=== PATIENT | female | born 1985 | race American Indian/Alaskan Native ===

== ENCOUNTER 2020-11-29 19:07 | Inpatient (IN) | payer MEDICAID, OTHER ==
--- NOTE | 2020-11-29 19:56 | Event Note ---
ED Screening Note Date of service: 11/29/20 Time: 19:55 ED Screening Note: Patient here with complaints of abdominal pain and vomiting History of diabetes Heart rate noted to be 143 with a temperature of 100 This initial assessment/diagnostic orders/clinical plan/treatment(s) is/are subject to change based on patients health status, clinical progression and re- assessment by fellow clinical providers in the ED. Further treatment and workup at subsequent clinical providers discretion. Patient/guardian urged not to elope from the ED as their condition may be serious if not clinically assessed and managed. Initial orders include: Labs POC glucose EKG
[2020-11-29] MEDS ORDERED: HYDROmorphone 1 MG/1 ML INJ IV ONE ×2 (20:53→22:46)
[2020-11-29] MEDS ORDERED: ONDANSETRON 4 MG/2 ML INJ IV ONE (20:53)
[2020-11-29] MEDS ORDERED: SODIUM CHLORIDE 0.9% 1000 ML 1,000 ML IV ONE ×3 (20:53→22:30)
--- NOTE | 2020-11-29 20:58 | Emergency Department Report ---
ED Abdominal Pain HPI - General Chief Complaint: Nausea/Vomiting/Diarrhea Stated Complaint: ABD PAIN,NAUSEA,VOMITING PUI?: No Time Seen by Provider: 11/29/20 20:53 Source: patient, EMS Mode of arrival: Stretcher Limitations: No Limitations - History of Present Illness Initial Comments: Patient is a 35-year-old female that presents emergency room with complaints of upper abdominal pain and bilateral flank pain. Patient states that the pain started at 4 AM this morning. Patient states she consumed a donut and then began to began to have abdominal pain and vomiting. Patient states now she has developed diarrhea. Patient denies blood in the vomitus. Patient denies blood in her vomit. Patient dates not able to hold anything down. Patient states the pain is in her upper abdomen and in her bilateral flanks. Patient states the pain is nonradiating. Patient dates the pain is a 10 out of 10. Patient states the pain is better with rest and worse with movement and palpation. Patient denies recent travel. Patient denies recent international travel. Patient denies exposure to the novel coronavirus. Patient denies sick contacts. Patient denies fever and chills. Patient denies cough. Patient denies diarrhea. Patient denies coming in contact with anybody with symptoms of the novel coronavirus. MD Complaint: abdominal pain -: Sudden Location: LUQ, RUQ, epigastric, L flank, R flank Migration to: no migration Severity: severe Severity scale (0 -10): 10 Quality: stabbing Consistency: constant Improves With: rest Worsens With: eating, vomiting, movement Associated Symptoms: nausea, vomiting, diarrhea. denies: fever, chills, con stipation, dysuria, hematemesis, hematochezia, melena, hematuria, syncope Treatments Prior to Arrival: other - Related Data LMP (females 10-50): last week Previous Rx's Medication Instructions Recorded Last Taken Type Ondansetron [Zofran Odt] 4 mg SL Q6H PRN #8 tab.rapdis 06/20/15 Unknown Rx Albuterol Sulfate [Ventolin HFA] 2 puff IH Q4H PRN #1 hfa.aer.ad 09/09/15 Unknown Rx Azithromycin [Zithromax Z-DANIE] 250 mg PO DAILY #6 tab 09/09/15 Unknown Rx Ibuprofen [Motrin] 800 mg PO Q8HR PRN #15 tablet 09/09/15 Unknown Rx Promethazine Dm (Nf) [Phenergan DM 5 ml PO Q6H PRN #120 ml 09/09/15 Unknown Rx 6.25-15 mg/5 ml] methylPREDNISolone [Medrol Dose 4 mg PO QAM #1 pack 09/09/15 Unknown Rx Danie] HYDROcodone/APAP 10-325 [[place] 1 each PO Q6HR PRN #20 tablet 01/23/16 Unknown Rx 10-325 mg TAB] Allergies Allergy/AdvReac Type Severity Reaction Status Date / Time ibuprofen [From Motrin] Allergy Swelling Verified 01/22/16 16:54 ketorolac tromethamine Allergy Swelling Verified 09/09/15 15:34 [From Toradol] metoclopramide [From Reglan] Allergy Rash Verified 11/29/20 19:55 tramadol Allergy Swelling Verified 09/09/15 15:34 vancomycin Allergy Hives Verified 11/29/20 19:54 ED Review of Systems ROS: Stated complaint: ABD PAIN,NAUSEA,VOMITING Other details as noted in HPI Constitutional: denies: chills, fever Eyes: denies: eye pain, eye discharge, vision change ENT: denies: ear pain, throat pain Respiratory: denies: cough, shortness of breath, wheezing Cardiovascular: denies: chest pain, palpitations Endocrine: no symptoms reported Gastrointestinal: as per HPI, abdominal pain, nausea, vomiting, diarrhea. denies: constipation, hematemesis, melena, hematochezia Genitourinary: denies: urgency, dysuria, discharge Musculoskeletal: denies: back pain, joint swelling, arthralgia Skin: denies: rash, lesions Neurological: denies: headache, weakness, paresthesias Psychiatric: denies: anxiety, depression Hematological/Lymphatic: denies: easy bleeding, easy bruising ED Past Medical Hx - Past Medical History Previous Medical History?: Yes Hx Diabetes: Yes Hx Asthma: Yes Additional medical history: Chronic back pain. enlarged heart - Surgical History Past Surgical History?: Yes Hx Cholecystectomy: Yes Hx Appendectomy: Yes Hx Breast Surgery: Yes (reduction) Additional Surgical History: right ankle surgery. total hysterectomy - Family History Family history: no significant - Social History Smoking Status: Never Smoker Substance Use Type: None - Medications Home Medications: Home Medications Medication Instructions Recorded Confirmed Last Taken Type Ondansetron [Zofran Odt] 4 mg SL Q6H PRN #8 tab.rapdis 06/20/15 Unknown Rx Albuterol Sulfate [Ventolin HFA] 2 puff IH Q4H PRN #1 hfa.aer.ad 09/09/15 Unknown Rx Azithromycin [Zithromax Z-DANIE] 250 mg PO DAILY #6 tab 09/09/15 Unknown Rx Ibuprofen [Motrin] 800 mg PO Q8HR PRN #15 tablet 09/09/15 Unknown Rx Promethazine Dm (Nf) [Phenergan DM 5 ml PO Q6H PRN #120 ml 09/09/15 Unknown Rx 6.25-15 mg/5 ml] methylPREDNISolone [Medrol Dose 4 mg PO QAM #1 pack 09/09/15 Unknown Rx Danie] HYDROcodone/APAP 10-325 [[place] 1 each PO Q6HR PRN #20 tablet 01/23/16 Unknown Rx 10-325 mg TAB] ED Physical Exam - General Limitations: No Limitations General appearance: alert, in no apparent distress - Head Head exam: Present: atraumatic, normocephalic - Eye Eye exam: Present: normal appearance - ENT ENT exam: Present: mucous membranes moist - Neck Neck exam: Present: normal inspection - Respiratory Respiratory exam: Present: normal lung sounds bilaterally. Absent: respiratory distress - Cardiovascular Cardiovascular Exam: Present: regular rate, normal rhythm. Absent: systolic murmur, diastolic murmur, rubs, gallop - GI/Abdominal GI/Abdominal exam: Present: soft, tenderness (Upper abdomen tenderness to palpation.), normal bowel sounds - Extremities Exam Extremities exam: Present: normal inspection - Back Exam Back exam: Present: normal inspection - Neurological Exam Neurological exam: Present: alert, oriented X3 - Psychiatric Psychiatric exam: Present: normal affect, normal mood - Skin Skin exam: Present: warm, dry, intact, normal color. Absent: rash ED Course Vital Signs 11/29/20 19:39 Temperature 100.0 F H Pulse Rate 143 H Respiratory 18 Rate Blood Pressure 109/72 O2 Sat by Pulse 98 Oximetry - Reevaluation(s) Reevaluation #1: Patient states her pain is severe. Patient will be given another milligram of Dilaudid. 11/29/20 22:37 Reevaluation #2: Patient states her pain is a little bit better. I discussed all results with patient. I discussed plan of care with patient. Patient agrees with plan of care and admission. Patient to be admitted to the hospitalist service. 11/29/20 23:34 - Consultations Consultation #1: Hospitalist consulted for admission. Hospitalist to admit patient. 11/29/20 23:36 ED Medical Decision Making - Lab Data Result diagrams: 11/29/20 20:20 11/29/20 20:54 - Radiology Data Radiology results: report reviewed, image reviewed interpreted by me: Chest x-ray: No pneumonia, no pneumothorax, no foreign body, no osseous findings, no acute findings CT abdomen pelvis w con INDICATION: Upper abd pain and bi-lateral flank pain with vomiting.. COMPARISON: None TECHNIQUE: Abdominal and pelvic CT exam performed. All CT scans at this location are performed using CT dose reduction for ALARA by means of automated exposure control. FINDINGS: CT ABDOMEN and PELVIS: Lung Bases: No significant abnormality. Liver: No significant abnormality. Biliary: Gallbladder is surgically absent. Spleen: No significant abnormality. Pancreas: No significant abnormality. Adrenals: No significant abnormality. Kidneys: No significant abnormality. Lymphatics: No lymphadenopathy. Vasculature: No significant abnormality. Bowel: No significant abnormality. Appendix is surgically absent. Pelvis: Uterus is surgically absent. Osseous Structures: No aggressive osseous lesion. Additional Findings: None IMPRESSION: 1. No acute abnormality of the abdomen or pelvis. XR chest 1V ap INDICATION / CLINICAL INFORMATION: fever COMPARISON: None available. FINDINGS: SUPPORT DEVICES: None. HEART / MEDIASTINUM: No significant abnormality. LUNGS / PLEURA: Lungs are clear. Costophrenic sulci are sharp. No pneumothorax. ADDITIONAL FINDINGS: No significant additional findings. IMPRESSION: 1. No acute findings. - Medical Decision Making Patient is a 35-year-old female that presents emergency room with complaints of nausea, vomiting, diarrhea, abdominal pain. Patient states her symptoms started at 4 AM. Patient states she is unable to hold anything down. Patient states she is having severe pain. Patient had labs done which were essentially unremarkable except for elevated WBC and lactic acidosis. Patient given fluids and antibiotics early in her ER stay. Patient had a CT scan and the CT scan of the abdomen showed no acute findings. Patient given pain medication which improved her pain. Patient given Zofran which improved her nausea vomiting. Patient has a Sirs reaction and is unclear where her source of infection is. Patient will be admitted to the hospital service for further evaluation treatment. Prior to admission, the hospitalist request Covid work-up and chest x-ray. Chest x-ray is negative for acute finding. I personally reviewed the chest x- ray. The Covid labs will be pending and the hospitalist will follow the Covid labs. Critical care time documented due to the multiple reassessments, prolonged time at the bedside, interpretation of diagnostics and labs. - Differential Diagnosis Fever, abdominal pain, nausea, vomiting, gastroenteritis, diverticulitis Critical Care Time: Yes Critical care time in (mins) excluding proc time.: 35 Critical care attestation.: If time is entered above; I have spent that time in minutes in the direct care of this critically ill patient, excluding procedure time. Critical Care Time: 35 minutes ED Disposition Clinical Impression: Lactic acid acidosis, SIRS (systemic inflammatory response syndrome), Gastroenteritis, Person under investigation for COVID-19 Abdominal pain Qualifiers: Abdominal location: upper abdomen, unspecified Qualified Code(s): R10.10 - Upper abdominal pain, unspecified Nausea & vomiting Qualifiers: Vomiting type: unspecified Vomiting Intractability: non-intractable Qualified Code(s): R11.2 - Nausea with vomiting, unspecified Fever Qualifiers: Fever type: unspecified Qualified Code(s): R50.9 - Fever, unspecified Disposition: DC-09 OP ADMIT IP TO THIS HOSP Is pt being admited?: Yes Does the pt Need Aspirin: No Condition: Critical Time of Disposition: 23:37
[2020-11-29 20:59] LABS: Mean Corpuscular HGB Conc 31 % (30-34); Mean Corpuscular Volume 87 fl (79-97); Platelet Count 233 K/mm3 (140-440); Red Blood Count 4.82 M/mm3 (3.65-5.03); Red Cell Distribution Width 16.9 % (13.2-15.2)
[2020-11-29 21:00] LABS: Hemoglobin 12.9 gm/dl (10.1-14.3)
[2020-11-29 21:30] LABS: Alanine Aminotransferase 17 units/L (7-56); Albumin 4.5 g/dL (3.9-5); BUN/Creatinine Ratio 14; Blood Urea Nitrogen 11 mg/dL (7-17); Calcium 9.2 mg/dL (8.4-10.2); Hemolysis Index 15
[2020-11-29 22:03] LABS: Bacteria,Urine 1+ /HPF (Negative); Bilirubin,Urine NEG (Negative); Blood,Urine SM (Negative); Color,Urine Yellow (Yellow); Mucus,Urine 2+ /HPF; Urobilinogen,Urine < 2.0 mg/dL (<2.0)
[2020-11-29 22:22] LABS: Total Cells Counted 100
[2020-11-29 22:23] LABS: Anisocytosis Few; Hypochromasia Rare
[2020-11-29] MEDS ORDERED: PIPERACILLIN/TAZOBACTAM 3.375 3.375 GM/50 ML BAG IV ONE (22:29)
--- NOTE | 2020-11-29 22:55 | Cat Scan Report ---
CT abdomen pelvis w con INDICATION: Upper abd pain and bi-lateral flank pain with vomiting.. COMPARISON: None TECHNIQUE: Abdominal and pelvic CT exam performed. All CT scans at this location are performed using CT dose reduction for ALARA by means of automated exposure control. FINDINGS: CT ABDOMEN and PELVIS: Lung Bases: No significant abnormality. Liver: No significant abnormality. Biliary: Gallbladder is surgically absent. Spleen: No significant abnormality. Pancreas: No significant abnormality. Adrenals: No significant abnormality. Kidneys: No significant abnormality. Lymphatics: No lymphadenopathy. Vasculature: No significant abnormality. Bowel: No significant abnormality. Appendix is surgically absent. Pelvis: Uterus is surgically absent. Osseous Structures: No aggressive osseous lesion. Additional Findings: None IMPRESSION: 1. No acute abnormality of the abdomen or pelvis. Signer Name: Matthew Orona MD Signed: 11/29/2020 10:51 PM Workstation Name: [id number]
--- NOTE | 2020-11-30 00:04 | XRay Report ---
XR chest 1V ap INDICATION / CLINICAL INFORMATION: fever COMPARISON: None available. FINDINGS: SUPPORT DEVICES: None. HEART / MEDIASTINUM: No significant abnormality. LUNGS / PLEURA: Lungs are clear. Costophrenic sulci are sharp. No pneumothorax. ADDITIONAL FINDINGS: No significant additional findings. IMPRESSION: 1. No acute findings. Signer Name: Matthew Orona MD Signed: 11/29/2020 11:59 PM Workstation Name: [id number]
[2020-11-30] MEDS ORDERED: HYDROmorphone 1 MG/1 ML INJ IV ONE (00:50)
[2020-11-30] MEDS ORDERED: ACETAMINOPHEN 325 MG TAB PO PRN (00:56)
[2020-11-30] MEDS ORDERED: MAGNESIUM HYDROXIDE (MOM) ORAL LIQD UDC PO PRN (00:56)
[2020-11-30] MEDS ORDERED: DEXTROSE 50% IN WATER (25GM) 50 ML SYRINGE IV PRN (00:56)
[2020-11-30] MEDS ORDERED: ONDANSETRON 4 MG/2 ML INJ IV PRN (00:56)
--- NOTE | 2020-11-30 01:05 | History and Physical Report ---
History of Present Illness Date of examination: 11/30/20 Date of admission: 11/30/20 01:00 Chief complaint: Abdominal Pain Nausea,Vomiting & Diarrhea. History of present illness: 35-year-old -[place] female with known history of diabetes mellitus and asthma presenting to the emergency room today complaining of abdominal pain and bilateral flank pain. Pain was said to have started early this morning after eating some doughnuts. Patient has been having nausea, vomiting and subsequently diarrhea. She denies any hematemesis. Patient denies any bright red blood per rectum. She had some low-grade fever which has since subsided On a scale of 10 abdominal pain was said to be 10/10 in severity. Pain is made worse by movement and improves upon resting. Patient denies any sick contacts and no recent travel. Denies any contact with anyone with COVID-19. Work-up in the emergency room today reveals a leukocytosis of 22. Lactic acid of 15. CT of the abdomen and pelvis was unremarkable. Chest x-ray did not reveal any acute findings. Patient is being admitted with abdominal pain with leukocytosis and lactic acidosis. Patient has been started on empiric IV antibiotics. We will also rule out for possible PUI. Past History Past Medical History: other (Asthma,Chronic Back Pain) Past Surgical History: appendectomy, cholecystectomy, hysterectomy, Other (Right Ankle surgery,Breast reduction.) Family history: no significant family history Medications and Allergies Allergies Allergy/AdvReac Type Severity Reaction Status Date / Time ibuprofen [From Motrin] Allergy Swelling Verified 01/22/16 16:54 ketorolac tromethamine Allergy Swelling Verified 09/09/15 15:34 [From Toradol] metoclopramide [From Reglan] Allergy Rash Verified 11/29/20 19:55 tramadol Allergy Swelling Verified 09/09/15 15:34 vancomycin Allergy Hives Verified 11/29/20 19:54 Home Medications Medication Instructions Recorded Confirmed Last Taken Type Ondansetron [Zofran Odt] 4 mg SL Q6H PRN #8 tab.rapdis 06/20/15 Unknown Rx Albuterol Sulfate [Ventolin HFA] 2 puff IH Q4H PRN #1 hfa.aer.ad 09/09/15 Unknown Rx Azithromycin [Zithromax Z-DANIE] 250 mg PO DAILY #6 tab 09/09/15 Unknown Rx Ibuprofen [Motrin] 800 mg PO Q8HR PRN #15 tablet 09/09/15 Unknown Rx Promethazine Dm (Nf) [Phenergan DM 5 ml PO Q6H PRN #120 ml 09/09/15 Unknown Rx 6.25-15 mg/5 ml] methylPREDNISolone [Medrol Dose 4 mg PO QAM #1 pack 09/09/15 Unknown Rx Danie] HYDROcodone/APAP 10-325 [[place] 1 each PO Q6HR PRN #20 tablet 01/23/16 Unknown Rx 10-325 mg TAB] Review of Systems Constitutional: no fever, no chills Ears, nose, mouth and throat: no nasal congestion, no sore throat Cardiovascular: no chest pain, no palpitations Respiratory: no cough, no shortness of breath Gastrointestinal: abdominal pain, nausea, vomiting, diarrhea, no hematemesis, no melena Genitourinary Female: no pelvic pain, no flank pain, no dysuria, no hematuria Musculoskeletal: no neck pain, no low back pain Integumentary: no rash, no pruritis Neurological: no headaches, no confusion Psychiatric: no anxiety, no depression Endocrine: no polydipsia, no polyuria, no nocturia Exam - Constitutional Vitals: Temp Pulse Resp BP Pulse Ox 99.6 F 111 H 18 111/77 99 11/30/20 00:47 11/30/20 00:31 11/30/20 00:31 11/30/20 00:31 11/30/20 00:31 General appearance: Present: no acute distress, well-nourished, obese - EENT Eyes: Present: PERRL, EOM intact. Absent: scleral icterus ENT: hearing intact, clear oral mucosa, dentition normal - Neck Neck: Present: supple, normal ROM - Respiratory Respiratory effort: normal Respiratory: bilateral: CTA - Cardiovascular Rhythm: regular Heart Sounds: Present: S1 & S2. Absent: gallop, systolic murmur, diastolic murmur, rub, click - Extremities Extremities: no ischemia, pulses intact, pulses symmetrical, No edema, normal temperature, normal color, Full ROM Peripheral Pulses: within normal limits - Abdominal General gastrointestinal: Present: soft, tender (Epigastric tenderness, no rebound tenderness and no guarding.), non-distended, normal bowel sounds. Absent: mass - Integumentary Integumentary: Present: clear, warm, dry. Absent: rash - Musculoskeletal Musculoskeletal: strength equal bilaterally - Psychiatric Psychiatric: appropriate mood/affect, intact judgment & insight, memory intact, cooperative - Neurologic Neurologic: CNII-XII intact, no focal deficits, moves all extremities Results - Labs CBC & Chem 7: 11/29/20 20:20 11/30/20 00:17 Labs: Abnormal lab results 11/29/20 11/29/20 11/29/20 Range/Units 20:20 20:20 20:54 WBC 22.0 H (4.5-11.0) K/mm3 MCH 27 L (28-32) pg RDW 16.9 H (13.2-15.2) % Lymphocytes % (Manual) 37.0 H (13.4-35.0) % Seg Neutrophils # Man 12.5 H (1.8-7.7) K/mm3 Lymphocytes # (Manual) 8.1 H (1.2-5.4) K/mm3 Basophils # (Manual) 0.2 H (0.0-0.1) K/mm3 Sodium 132 L (137-145) mmol/L Chloride 96.0 L (98-107) mmol/L Carbon Dioxide 21 L (22-30) mmol/L Glucose 201 H (65-100) mg/dL Lactic Acid 15.30 H* (0.7-2.0) mmol/L Lipase 12 L (13-60) units/L 11/29/20 Range/Units 22:55 WBC (4.5-11.0) K/mm3 MCH (28-32) pg RDW (13.2-15.2) % Lymphocytes % (Manual) (13.4-35.0) % Seg Neutrophils # Man (1.8-7.7) K/mm3 Lymphocytes # (Manual) (1.2-5.4) K/mm3 Basophils # (Manual) (0.0-0.1) K/mm3 Sodium (137-145) mmol/L Chloride (98-107) mmol/L Carbon Dioxide (22-30) mmol/L Glucose (65-100) mg/dL Lactic Acid 2.80 H* (0.7-2.0) mmol/L Lipase (13-60) units/L Assessment and Plan - Patient Problems (1) Abdominal pain Current Visit: Yes Status: Acute Qualifiers: Abdominal location: upper abdomen, unspecified Qualified Code(s): R10.10 - Upper abdominal pain, unspecified Plan to address problem: Etiology unclear. Possibly gastritis. Patient placed on IV fluid, proton pump inhibitor and IV analgesic medication. (2) Lactic acid acidosis Current Visit: Yes Status: Acute Plan to address problem: Possibly secondary to the nausea, vomiting and diarrhea. We will continue on IV fluid and will monitor chemistry. (3) Nausea & vomiting Current Visit: Yes Status: Acute Qualifiers: Vomiting type: unspecified Vomiting Intractability: non-intractable Qualified Code(s): R11.2 - Nausea with vomiting, unspecified Plan to address problem: Patient placed on IV Zofran as needed. (4) SIRS (systemic inflammatory response syndrome) Current Visit: Yes Status: Acute Plan to address problem: Patient continued on antibiotics and IV fluid. (5) DVT prophylaxis Current Visit: Yes Status: Acute Plan to address problem: Patient placed on anticoagulation with subcutaneous heparin. (6) Full code status Current Visit: Yes Status: Acute Plan to address problem: Patient is full code.
[2020-11-30] MEDS: SODIUM CHLORIDE 0.9% 1000 ML 1,000 ML IV SCH ×2 (02:02→09:34)
[2020-11-30 02:26] LABS: C-Reactive Protein 5.7 mg/dL (0.00-1.30)
[2020-11-30] MEDS: HYDROmorphone 1 MG/1 ML INJ IV PRN ×4 (05:25→17:14)
[2020-11-30] MEDS: HEPARIN 5,000 UNIT/1 ML VIAL SUB-Q SCH ×2 (05:25→13:39)
[2020-11-30] MEDS: INSULIN LISPRO 100 UNIT/ML SUB-Q SCH ×3 (09:04→17:19)
[2020-11-30] MEDS ORDERED: PANTOPRAZOLE 40 MG INJ IV SCH (10:00)
[2020-11-30 11:58] LABS: Bilirubin,Urine NEG (Negative); Blood,Urine NEG (Negative); Color,Urine Yellow (Yellow); Mucus,Urine FEW /HPF; Protein,Urine <15 mg/dL mg/dL (Negative); Urobilinogen,Urine < 2.0 mg/dL (<2.0)
[2020-11-30 13:43] VITALS: BP 97/68
--- NOTE | 2020-11-30 15:37 | Discharge Summary ---
Providers - Providers Date of Admission: 11/30/20 10:05 Attending physician: ZENIA MCDONALD MD 11/30/20 00:56 Consult to Dietitian/Nutrition [CONS] Routine Physician Instructions: Reason For Exam: Reason for Consult: Diet education Primary care physician: [employer] Hospitalization Reason for admission: Gastroenteritis Condition: Stable Hospital course: 35-year-old -[place] female with known history of diabetes mellitus and asthma presenting to the emergency room today complaining of abdominal pain and bilateral flank pain. Pain was said to have started early this morning after eating some doughnuts. Patient has been having nausea, vomiting and subsequently diarrhea. She denies any hematemesis. Patient denies any bright red blood per rectum. She had some low-grade fever which has since subsided On a scale of 10 abdominal pain was said to be 10/10 in severity. Pain is made worse by movement and improves upon resting. Patient denies any sick contacts and no recent travel. Denies any contact with anyone with COVID-19. Work-up in the emergency room today reveals a leukocytosis of 22. Lactic acid of 15. CT of the abdomen and pelvis was unremarkable. Chest x-ray did not reveal any acute findings. Patient is being admitted with abdominal pain with leukocytosis and lactic acidosis. Patient has been started on empiric IV antibiotics. We will also rule out for possible PUI. During the course of the hospitalization the patient electrolytes were monitored and improved Symptoms also resolved. Her back pain resolved. She stated that she had back surgery many years ago and was concerned if that was the source of infection. Her Covid testing was done and is negative she demonstrated no fever. Is on chronic pain medication I will continue to follow with her pain doctor (1) Abdominal pain secondary to gastroenteritis Current Visit: Yes Status: Acute Qualifiers: Abdominal location: upper abdomen, unspecified Qualified Code(s): R10.10 - Upper abdominal pain, unspecified Plan to address problem: Etiology unclear. Possibly gastritis. Patient placed on IV fluid, proton pump inhibitor and IV analgesic medication. (2) Lactic acid acidosis Current Visit: Yes Status: Acute Plan to address problem: Possibly secondary to the nausea, vomiting and diarrhea. We will continue on IV fluid and will monitor chemistry. (3) Nausea & vomiting Current Visit: Yes Status: Acute Qualifiers: Vomiting type: unspecified Vomiting Intractability: non-intractable Qualified Code(s): R11.2 - Nausea with vomiting, unspecified Plan to address problem: Patient placed on IV Zofran as needed. (4) SIRS (systemic inflammatory response syndrome) Current Visit: Yes Status: Acute Plan to address problem: Patient continued on antibiotics and IV fluid. (5) Leukocytosis Disposition: DC-01 TO HOME OR SELFCARE Final Discharge Diagnosis (Prints w/discharge instructions): Gastroenteritis Time spent for discharge: 35 minutes Core Measure Documentation - Palliative Care Palliative Care/ Comfort Measures: Not Applicable - Core Measures Any of the following diagnoses?: none Exam - Physical Exam Narrative exam: VITAL SIGNS: Reviewed. GENERAL: The patient appears normally developed, overly obese vital signs as documented. HEAD: No signs of head trauma. EYES: Pupils are equal. Extraocular motions intact. EARS: Hearing grossly intact. MOUTH: Oropharynx is normal. NECK: No adenopathy, no JVD. CHEST: Chest with clear breath sounds bilaterally. No wheezes, rales, or rhonchi. CARDIAC: Regular rate and rhythm. S1 and S2, without murmurs, gallops, or rubs. VASCULAR: No Edema. Peripheral pulses normal and equal in all extremities. ABDOMEN: Soft, non tender and non distended. No rebound or guarding, and no masses palpated. Bowel Sounds normal. MUSCULOSKELETAL: Good range of motion of all major joints. Extremities without clubbing, cyanosis or edema. NEUROLOGIC EXAM: Alert and oriented x 3 No focal sensory or strength deficits. Speech normal. Follows commands. PSYCHIATRIC: Mood normal. SKIN: Surgical incision noted to the back, detail exam as documented in skin assessment - Constitutional Vitals: Temp Pulse Resp BP Pulse Ox 98.3 F 100 H 18 97/68 100 11/30/20 13:40 11/30/20 13:40 11/30/20 13:40 11/30/20 13:40 11/30/20 13:40 Plan Activity: advance as tolerated, fall precautions Diet: low fat Special Instructions: record daily weights, record daily BP diary Follow up with: PRIMARY CARE,MD [Primary Care Provider] - 3-5 Days Prescriptions: Ondansetron [Zofran Odt] 4 mg PO Q8HR #30 tabdemi
== END 2020-11-30 18:10 | disposition home or self-care (01) | DRG 392 ==
LOC: ED 19:07 → 3A 23:41 → OBSVTOIN 11-30 10:05
PROVIDERS: ADMIT Internal Medicine Geriatric Medicine; ATTEND Internal Medicine
DX: K52.9 Noninfective gastroenteritis and colitis, unspecified (principal); R65.10 Systemic inflammatory response syndrome (SIRS) of non-infectious origin without acute organ dysfunction; E87.2 Acidosis; E11.9 Type 2 diabetes mellitus without complications; J45.909 Unspecified asthma, uncomplicated; Z20.822 Contact with and (suspected) exposure to COVID-19; D72.829 Elevated white blood cell count, unspecified; G89.29 Other chronic pain; M54.9 Dorsalgia, unspecified; Z90.49 Acquired absence of other specified parts of digestive tract; Z90.710 Acquired absence of both cervix and uterus; Z88.1 Allergy status to other antibiotic agents; Z79.899 Other long term (current) drug therapy
CPT/HCPCS: 36415; 71045; 74177; 80053; 81001; 82140; 82728; 82947; 82962; 83615; 83690; 84145; 84703; 85007; 85025; 85379; 86140; 87040; 96374; 96375; G0378; C9113; J1170; J1644; J2405; J2543; J7030; Q9967; U0003